=== PATIENT | male | born 1965 | race Two or more races ===

== ENCOUNTER 2018-10-30 21:07 | Emergency (ER) | payer MEDICAID ==
--- NOTE | 2018-10-30 21:32 | ED Physician Chart ---
ED Chief Complaint/HPI - Patient Information Date Seen:: 10/30/18 Time Seen:: 21:22 Chief Complaint:: Back pain History of Present Illness:: Pt is primarily Armenian speaking. Interpretation is provided by his daughter Tila per pt's request. Pt came in by private auto because of mid bilateral upper paralumbar pain for 2 weeks. No known injury. No fever. Pain can be precipitated and aggravated with back movements. No LE weakness or numbness. No urinary or fecal incontinence or retention. No gross hematuria, dysuria, urinary frequency, or urgency. Pt denies use of any analgesic today. Allergies:: Allergies Allergy/AdvReac Type Severity Reaction Status Date / Time No Known Allergies Allergy Verified 10/30/18 21:19 Vitals:: Vital Signs - 8 hr 10/30/18 21:10 Temp 98.2 F HR 96 RR 18 BP 126/86 O2 Sat % 99 Historian:: Patient Family MD/PCP:: Dr. Shipley LMP:: N/A Review:: Nurse's Note Reviewed ED Review of Systems - Review of Systems General/Constitutional: No fever, No chills, No weight loss, No weakness, No edema, No loss of appetite Skin: No rash, No bruising Head: Headache (transient), No light-headedness Eyes: No loss of vision, No pain, No diplopia ENT: No earache, No nasal drainage, No sore throat Neck: No neck pain, No swelling, No thyromegaly, No stiffness, No mass noted Cardio Vascular: No chest pain, No palpitations, No edema Pulmonary: No SOB, No cough, No wheezing GI: No nausea, No vomiting, No pain G/U: No dysuria, No frequency, No hematuria Musculoskeletal: Back pain Endocrine: No polyuria, No polydipsia Psychiatric: No prior psych history Hematopoietic: No bruising, No lymphadenopathy Allergic/Immuno: No urticaria, No angioedema Neurological: No syncope, No focal symptoms, No weakness, No paresthesia, No confusion ED Past Medical History - Past Medical History Past Medical History: CAD (s/p [place] 4 y/a with a stent placement.) Family History: Cancer Social History: Non Smoker, No Alcohol, No Drug Use, , Employed, Other ( lives with his .) 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 Head: Atraumatic Eyes: Lids, conjuctiva normal, PERRL, EOMI Skin: Nl inspection, No skin lesions, No ecchymosis, Well hydrated, No lymphadenopathy ENMT: External ears, nose nl, Nasal exam nl, Oropharynx nl Neck: Nontender, Full ROM w/o pain, No JVD, No nuchal rigidity, No mass Respiratory: Nl effort/Exclusion, Clear to Auscultation, No Wheeze/Rhonchi/Rales Cardio Vascular: RRR, No murmur, gallop, rubs GI: No tenderness/rebounding/guarding, No organomegaly, Normal BS's, Nondistended, No mass/bruits : No CVA tenderness Extremities: No tenderness or effusion, Full ROM, normal strength in all extremities, No edema Neuro/Psych: Alert/oriented (oriented x 3), DTR's symmetric, Normal sensory exam , Normal motor strength, Mood normal, Normal gait, No focal deficits Other Neuro/Psych comments:: Negative SLR's bilaterally. Other Misc comments:: Mild diffuse tenderness with palpation from mid thoracic to mid lumbar spine and para-spinal regions. No gross deformity, erythema, ecchymosis, crepitus, swelling, or open wound. Good ROM. ED Labs/Radiology/EKG Results - Lab Results Results: Laboratory Tests 10/30/18 10/30/18 22:10 22:10 WBC 6.6 RBC 5.10 Hgb 15.6 Hct 44.0 MCV 86.3 MCH 30.5 H MCHC Differential 35.4 RDW 12.0 Plt Count 274 MPV 8.2 Neutrophils % 54.4 Lymphocytes % 35.8 Monocytes % 7.3 Eosinophils % 1.8 Basophils % 0.7 Sodium 135 L Potassium 3.7 Chloride 105 Carbon Dioxide 19.4 L Anion Gap 14.3 BUN 18 Creatinine 0.9 Est GFR ( Amer) > 60.0 Est GFR (Non-Af Amer) > 60.0 BUN/Creatinine Ratio 20.0 Glucose 133 H Calcium 9.6 Laboratory Last Values WBC 6.6 Th/cmm (4.8-10.8) 10/30/18 22:10 RBC 5.10 Mil/cmm (4.30-5.70) 10/30/18 22:10 Hgb 15.6 gm/dL (12-16) 10/30/18 22:10 Hct 44.0 % (41.0-60) 10/30/18 22:10 MCV 86.3 fl (80-99) 10/30/18 22:10 MCH 30.5 pg (26.0-30.0) H 10/30/18 22:10 MCHC Differential 35.4 pg (28.0-36.0) 10/30/18 22:10 RDW 12.0 % (11.5-20.0) 10/30/18 22:10 Plt Count 274 Th/cmm (150-400) 10/30/18 22:10 MPV 8.2 fl 10/30/18 22:10 Neutrophils % 54.4 % (40.0-80.0) 10/30/18 22:10 Lymphocytes % 35.8 % (20.0-50.0) 10/30/18 22:10 Monocytes % 7.3 % (2.0-10.0) 10/30/18 22:10 Eosinophils % 1.8 % (0.0-5.0) 10/30/18 22:10 Basophils % 0.7 % (0.0-2.0) 10/30/18 22:10 Sodium 135 mEq/L (136-145) L 10/30/18 22:10 Potassium 3.7 mEq/L (3.5-5.1) 10/30/18 22:10 Chloride 105 mEq/L (98-107) 10/30/18 22:10 Carbon Dioxide 19.4 mEq/L (21.0-31.0) L 10/30/18 22:10 Anion Gap 14.3 (7.0-16.0) 10/30/18 22:10 BUN 18 mg/dL (7-25) 10/30/18 22:10 Creatinine 0.9 mg/dL (0.7-1.3) 10/30/18 22:10 Est GFR ( Amer) > 60.0 ml/min (>90) 10/30/18 22:10 Est GFR (Non-Af Amer) > 60.0 ml/min 10/30/18 22:10 BUN/Creatinine Ratio 20.0 10/30/18 22:10 Glucose 133 mg/dL (70-105) H 10/30/18 22:10 Calcium 9.6 mg/dL (8.6-10.3) 10/30/18 22:10 Urine Source CLEAN C 10/30/18 21:50 Urine Color YELLOW 10/30/18 21:50 Urine Clarity SLIGHT HAZY (CLEAR) 10/30/18 21:50 Urine pH 5.5 (4.6 - 8.0) 10/30/18 21:50 Ur Specific [place] >= 1.030 (1.005-1.030) 10/30/18 21:50 Urine Protein TRACE mg/dL (NEGATIVE) 10/30/18 21:50 Urine Glucose (UA) NEGATIVE mg/dL (NEGATIVE) 10/30/18 21:50 Urine Ketones TRACE mg/dL (NEGATIVE) 10/30/18 21:50 Urine Blood SMALL (NEGATIVE) H 10/30/18 21:50 Urine Nitrate NEGATIVE (NEGATIVE) 10/30/18 21:50 Urine Bilirubin NEGATIVE (NEGATIVE) 10/30/18 21:50 Urine Urobilinogen 0.2 E.U./dL (0.2 - 1.0) 10/30/18 21:50 Ur Leukocyte Esterase NEGATIVE (NEGATIVE) 10/30/18 21:50 Urine RBC 0-2 /hpf (0-5) H 10/30/18 21:50 Urine WBC 0-2 /hpf (0-5) 10/30/18 21:50 Ur Epithelial Cells OCCASIONAL /lpf (FEW) 10/30/18 21:50 Urine Bacteria NONE SEEN /hpf (NONE SEEN) 10/30/18 21:50 - Radiology Results Results: Thoracolumbar spine X-ray: Based on my interpretation, diffuse degenerative changes with osteoporosis. Mild scoliosis in lumbar spine. No acute fx or subluxation. Official report is pending. ED Septic Shock - . Is Septic Shock (SBP<90, OR Lactate>4 mmol\L) present?: No - <6hrs of presentation: Vital Signs: Vital Signs - 8 hr 10/30/18 21:10 Temp 98.2 F HR 96 RR 18 BP 126/86 O2 Sat % 99 ED Reassessment (Disposition) - Reassessment Reassessment:: 1158 Pt has been repeatedly evaluated. His back pain has resolved. Lab and radiological findings have been reviewed with pt. Pt requests to go home now. Aftercare instructions have been given. Interpretation is provided by his son Dannie per pt's request. Reassessment Condition:: Improved - Diagnosis Diagnosis:: DJD of thoracolumbar spine with osteoporosis. - Aftercare/Follow up Instructions Aftercare/Follow-Up Instructions:: Refer to Discharge Instructions Notes:: May take Tylenol 500 mg tab one tab po q6h prn pain. Avoid heavy lifting or back straining activities. F/U with PCP Dr. Shipley in one day for recheck with repeat lab study: BMP. Return to ER immediately if condition worsens or if any further questions/ problems. Medication Prescribed:: None - Patient Disposition Discharge/Transfer:: Home Time:: 00:10 Condition at Disposition:: Stable, Improved
[2018-10-30 22:42] LABS: % BASOPHILS 0.7 % (0.0-2.0); % EOSINOPHILS 1.8 % (0.0-5.0); % LYMPHOCYTES 35.8 % (20.0-50.0); % MONOCYTES 7.3 % (2.0-10.0); % NEUTROPHILS 54.4 % (40.0-80.0); EOSINOPHILE ABSOLUTE 0.1 Th/cmm (0.1-0.4); HEMOGLOBIN 15.6 gm/dL (12-16); LYMPHOCYTE ABSOLUTE 2.4 Th/cmm (1.5-3.0); MEAN CELL VOLUME 86.3 fl (80-99); MEAN CORPUSCULAR HEMOGLOBIN 30.5 pg (26.0-30.0); MEAN CORPUSCULAR HGB CONC 35.4 pg (28.0-36.0); MONOCYTE ABSOLUTE 0.5 Th/cmm (0.3-1.0); NEUTROPHILE ABSOLUTE 3.6 Th/cmm (1.8-8.0); PLATELET COUNT 274 Th/cmm (150-400); WHITE BLOOD COUNT 6.6 Th/cmm (4.8-10.8)
[2018-10-30 22:50] LABS: ANION GAP 14.3 (7.0-16.0); BUN - UREA NITROGEN 18 mg/dL (7-25); CALCIUM SERUM 9.6 mg/dL (8.6-10.3); CARBON DIOXIDE 19.4 mEq/L (21.0-31.0); CHLORIDE 105 mEq/L (98-107); CREATININE - SERUM 0.9 mg/dL (0.7-1.3); GFR AFRICAN-AMERICAN > 60.0 ml/min (>90); GFR NON AFRICAN-AMERICAN > 60.0 ml/min; GLUCOSE 133 mg/dL (70-105); POTASSIUM SERUM 3.7 mEq/L (3.5-5.1); SODIUM SERUM 135 mEq/L (136-145)
[2018-10-30 23:16] LABS: URINE SOURCE CLEAN C
[2018-10-30 23:35] LABS: URINE BILIRUBIN NEGATIVE (NEGATIVE); URINE BLOOD SMALL (NEGATIVE); URINE GLUCOSE (UA) NEGATIVE (NEGATIVE); URINE KETONE TRACE mg/dL (NEGATIVE); URINE LEUKOCYTE ESTERASE NEGATIVE (NEGATIVE); URINE MICROSCOPIC INDICATED? YES; URINE NITRATE NEGATIVE (NEGATIVE); URINE PH 5.5 (4.6 - 8.0); URINE PROTEIN TRACE mg/dL (NEGATIVE); URINE UROBILINOGEN 0.2 E.U./dL (0.2 - 1.0)
[2018-10-30 23:42] LABS: URINE CLARITY SLIGHT HAZY (CLEAR); URINE COLOR YELLOW
[2018-10-30 23:51] LABS: URINE WBC 0-2 /hpf (0-5)
[2018-10-30 23:52] LABS: URINE BACTERIA NONE SEEN /hpf (NONE SEEN); URINE EPITHELIAL CELLS OCCASIONAL /lpf (FEW)
[2018-10-30 23:53] LABS: URINE RBC 0-2 /hpf (0-5)
--- NOTE | 2018-10-31 08:57 | Diagnostic Imaging Report ---
Thoracic and lumbar spine frontal and lateral views Indication: pain Comparison: none Findings: No acute compression fracture or subluxation. Moderate generalized degenerative changes are noted with marginal osteophytic spurs. There is rightward convexity of the thoracic spine. Multi copious stool is incidentally noted throughout the colon. IMPRESSION: Moderate generalized degenerative changes. No acute compression fracture or subluxation. If indicated CT follow-up may be obtained for further assessment Mild scoliosis. In the setting of trauma, if clinical symptoms persist and there is continued concern for an occult fracture, follow up exams in 5-7 days is suggested.
== END 2018-10-31 00:26 | disposition home or self-care (01) ==
LOC: ER 21:07
DX: M47.895 Other spondylosis, thoracolumbar region (principal); M81.8 Other osteoporosis without current pathological fracture; I25.10 Atherosclerotic heart disease of native coronary artery without angina pectoris; F32.9 Major depressive disorder, single episode, unspecified
CPT/HCPCS: 99284; 96374; 72080; 36415; 85025; 81001; 80048; J1885